=== PATIENT | female | born 1980 | race Caucasian/White ===

== ENCOUNTER 2018-02-02 08:51 | Emergency (ER) | payer OTHER ==
[2018-02-02 08:53] VITALS: BMI 22.8
[2018-02-02 08:56] VITALS: PULSE 82; TEMP 98; O2SAT 100
[2018-02-02] MEDS ORDERED: Fluorescein 1 mg Ophthalmic Strip ONE (09:09)
[2018-02-02] MEDS ORDERED: Polymyxin/Trimethoprim Ophth Soln OD STA (09:30)
--- NOTE | 2018-02-02 09:38 | ED PDOC ---
HPI: Eye Injury/Pain Time Seen by Provider: 02/02/18 09:02 Chief Complaint (Nursing): Eye Problem Chief Complaint (Provider): R eye pain History Per: Patient History/Exam Limitations: no limitations Onset/Duration Of Symptoms: Hrs (10), Sudden Onset Current Symptoms Are (Timing): Still Present Injury To Eye?: No Severity: Moderate Quality: Sharp Associated Symptoms: Pain, FB Sensation, Itching. denies: Decreased Vision, Swelling, Discharge From Eye Additional Complaint(s): 37yo female c/o R eye pain since washing her face last night, noticed FB sensation to R eye, flushed the eye w water but symptoms persisted overnight. No change vision, headache, fever, discharge or redness. Does not wear contacts or glasses. Past Medical History Reviewed: Historical Data, Nursing Documentation, Vital Signs Vital Signs: Last Vital Signs Temp 98 F 02/02/18 08:54 Pulse 82 02/02/18 08:54 Resp 20 02/02/18 08:54 BP 116/74 02/02/18 08:54 Pulse Ox 100 02/02/18 08:54 - Medical History PMH: No Chronic Diseases - Family History Family History: States: Unknown Family Hx - Allergies Allergies/Adverse Reactions: Allergies Allergy/AdvReac Type Severity Reaction Status Date / Time No Known Allergies Allergy Verified 02/02/18 09:01 Review of Systems Constitutional: Negative for: Fever Eyes: Positive for: Pain. Negative for: Vision Change, Conjunctivae Inflammation, Eyelid Inflammation, Redness Physical Exam - Reviewed Nursing Documentation Reviewed: Yes Vital Signs Reviewed: Yes - Physical Exam Appears: Positive for: Well, Non-toxic Head Exam: Positive for: ATRAUMATIC Skin: Positive for: Normal Color, Warm Eye Exam: Positive for: Normal appearance, EOMI, PERRL. Negative for: Nystagmus , Periorbital swelling, Periorbital tenderness, Conjunctival injection Respiratory: Negative for: Respiratory Distress Neurologic/Psych: Positive for: Oriented - ECG O2 Sat by Pulse Oximetry: 100 Medical Decision Making Medical Decision Making: tetracaine 2 drop to R eye w fluroscein stain no uptake eye flushed and symptoms remained tonopen pressure R eye 22/28 Eyelid everted and small black FB noted slightly imbedded into underside of lid. Sterile cotton tip applicator removed successfully Prophylaxis w polytrim drops today followup eye doctor prn Disposition - Clinical Impression Clinical Impression: Foreign body, eye - Patient ED Disposition Is Patient to be Admitted: No Counseled Patient/Family Regarding: Studies Performed, Diagnosis, Need For Followup - Disposition Referrals: Win Dang MD [Staff Provider] - Disposition: Routine/Home Disposition Time: 09:38 Condition: STABLE Additional Instructions: See eye doctor if any symptoms change or worsen. Return to ER for any concern. Use eye drops 2 drops every 4 hours x2 days. Instructions: Foreign Body in Eye (DC) Forms: [employer] (Sinhala)
[2018-02-02 10:17] VITALS: BP 122/67; RESP 18
== END 2018-02-02 10:17 | disposition home or self-care (01) ==
LOC: H.ER 08:51
DX: T15.01XA Foreign body in cornea, right eye, initial encounter (principal)